=== PATIENT | male | born 1980 | race American Indian/Alaskan Native ===

== ENCOUNTER 2017-02-15 07:13 | Day surgery (SDC) | payer MEDICAID ==
[~2017-02-15 07:13] MED LIST: Dextrose 5%-0.45% NaCl 1,000 ML IV SCH; Midazolam 1 MG/ML 2 ML SDV ONE; Sodium Chloride 0.9% 10 ML Syringe FLUSH PRN; fentaNYL 100 MCG/2 ML SDV ONE
[2017-02-15] MEDS ORDERED: Sodium Chloride 0.9% 1,000 ML IV SCH (07:45)
[2017-02-15] MEDS ORDERED: fentaNYL 100 MCG/2 ML SDV IV ONE ×2 (07:55)
[2017-02-15] MEDS ORDERED: Midazolam 1 MG/ML 2 ML SDV IV ONE ×2 (07:56→07:57)
--- NOTE | 2017-02-15 09:11 | OR ---
DATE: 02/15/2017 PROCEDURE: Esophagogastroduodenoscopy and multiple pinch biopsies. INSTRUMENT USED: GIF-Q180 Olympus video panendoscope. PREMEDICATIONS: No oral topical anesthesia used. Fentanyl 100 mcg intravenous, Versed 2 mg intravenous. The procedure was done under pulse oximetry, BP recording, and hall monitor. INDICATION: The patient with persistent abdominal pain and diarrhea, unexplained, and not responsive to medical measures. Esophagogastroduodenoscopy is performed for detection of any active erosive lesions, Avila esophagus and/or malignancy also under consideration, H. pylori status to be determined, small bowel biopsies to be obtained for any of the celiac disease, endoscopic hemostasis therapy if needed. DESCRIPTION OF PROCEDURE: The scope was passed with ease. Adequate visualization of the esophagus was made from proximal to distal areas. No upper esophageal lesions identified. No distal esophageal stricture. No uphill or downhill esophageal varices. No Justine-Bocanegra tear. No evidence of erosive esophagitis by Ruth criteria. No esophageal polyp or tumor mass identified. Z-line was seen at around 40 cm distal to the oral verge, configuration consistent with grade 1 by ZAP classification. No proximal gastric varices noted. Gastric fundus examination by retroflexion showed no polypoid lesions. There was moderate amount of gastric fluid retention that required aspiration. No gastric ulcer, malignant mass, or vascular ectasia identified. Duodenal bulb showed no ulcer. There was some prominent benign- appearing folds noted in the second part of the duodenum, multiple pinch biopsies, 4 in number were taken from different areas of the second part of the duodenum, and tissues were also obtained from the duodenal bulb at 9 and 12 o'clock positions and sent for any histopathologic evidence of celiac disease. Multiple pinch biopsies were taken from the gastric antrum and proximal body and sent for PyloriTek test for H. pylori and histopathology. No bleeding was noted from any of the visualized areas at the completion of examination. IMPRESSION: Normal study. The patient tolerated the procedure well. [facility] /[id number]
[2017-02-15 10:39] VITALS: BP 118/79
== END 2017-02-15 09:50 | disposition home or self-care (01) ==
LOC: DL.ENDO 07:13
PROVIDERS: ATTEND Internal Medicine Gastroenterology
DX: K29.50 Unspecified chronic gastritis without bleeding (principal); B96.81 Helicobacter pylori [H. pylori] as the cause of diseases classified elsewhere; E11.9 Type 2 diabetes mellitus without complications; K57.30 Diverticulosis of large intestine without perforation or abscess without bleeding; N20.9 Urinary calculus, unspecified; E66.09 Other obesity due to excess calories
CPT/HCPCS: 43239; 87077; J7030; J2250; J3010

== ENCOUNTER 2017-02-19 06:50 | Day surgery (SDC) | payer MEDICAID ==
[~2017-02-19 06:50] MED LIST changes: -Dextrose 5%-0.45% NaCl 1,000 ML IV SCH; -Sodium Chloride 0.9% 10 ML Syringe FLUSH PRN
[2017-02-19] MEDS ORDERED: Dextrose 5%-0.45% NaCl 1,000 ML IV SCH (07:00)
[2017-02-19] MEDS ORDERED: Sodium Chloride 0.9% 10 ML Syringe FLUSH PRN (07:00)
[2017-02-19] MEDS ORDERED: Sodium Chloride 0.9% 250 ML IV SCH (07:40)
[2017-02-19] MEDS ORDERED: fentaNYL 100 MCG/2 ML SDV IV ONE ×4 (08:14→17:12)
[2017-02-19] MEDS ORDERED: Midazolam 1 MG/ML 2 ML SDV IV ONE ×7 (08:15→17:12)
--- NOTE | 2017-02-19 10:18 | OR ---
DATE: 02/19/2017 PROCEDURE: Total colonoscopy, cold snare polypectomy, and multiple pinch biopsies. INSTRUMENT USED: CF-H180AL Olympus video colonoscope. PREMEDICATIONS: Fentanyl 150 mcg intravenous, Versed 4 mg intravenous. Nasal O2 cannula. The procedure was done under pulse oximetry, BP recording, and court recording monitor. INDICATION: The patient with chronic diarrhea and abdominal pain, unexplained, and not responsive to medical measures. Colonoscopic examination is done for detection of any polypoid lesions and removal, biopsies to be obtained for any evidence of microscopic colitis, endoscopic hemostasis therapy if needed. DESCRIPTION OF PROCEDURE: Initial rectal exam was unremarkable. Rigid anoscopy was normal. The colonoscope was passed with ease. In the mid sigmoid colon, less than 1 cm sized pedunculated polyp was noted, photograph was taken, cold snare polypectomy was done, the tissue was retrieved and sent for histopathology. The scope was passed with ease up to the ileocecal area, photographs were taken of the normal-appearing cecum, identified by appendiceal orifice and double-bulged ileocecal folds. The examination was compromised in quite a few areas due to the presence of adherent solid fecal material that could not be aspirated clear. No bleeding was noted from any of the visualized areas at the commencement of the examination. No stricture. No vascular ectasia. No large isolated ulcerations seen. No evidence of diffuse inflammatory bowel disease in the form of friability, contact bleeding, or ulcerations. Probing the proximal sides of folds and flexures, using adequate distention and clearing up the stool material, withdrawal of the scope was made. Multiple pinch biopsies were taken from the normal-appearing mucosa of the midtransverse colon, middescending colon, and rectosigmoid, and sent for any histopathologic evidence of microscopic colitis. No bleeding was noted from any of the visualized areas at the completion of examination. IMPRESSION: Sigmoid colonic polyp. The patient tolerated the procedure well. [facility] /[id number]
[2017-02-19 10:32] VITALS: BP 130/84
== END 2017-02-19 10:40 | disposition home or self-care (01) ==
LOC: DL.ENDO 06:50
PROVIDERS: ATTEND Internal Medicine Gastroenterology
DX: K51.40 Inflammatory polyps of colon without complications (principal); K52.9 Noninfective gastroenteritis and colitis, unspecified; K57.30 Diverticulosis of large intestine without perforation or abscess without bleeding; E11.9 Type 2 diabetes mellitus without complications; E66.09 Other obesity due to excess calories
CPT/HCPCS: 45380; 45385; J2250; J3010; J7050

== ENCOUNTER 2017-04-26 18:55 | Emergency (ER) | payer MEDICAID ==
[2017-04-26 19:10] VITALS: BP 144/93
[2017-04-26] MEDS ORDERED: Ketorolac 30 MG/ML SDV IM ONE (19:21)
[2017-04-26] MEDS ORDERED: Promethazine 25 MG/ML SDV IM ONE (19:21)
--- NOTE | 2017-04-26 19:25 | EDM.PDOC ---
ED HPI GENERAL MEDICAL PROBLEM - General Chief Complaint: Headache Stated Complaint: MIGRAINE [id number] Time Seen by Provider: 04/26/17 19:17 Source of Information: Reports: Patient History Limitations: Reports: No Limitations - History of Present Illness INITIAL COMMENTS - FREE TEXT/NARRATIVE: This 36 yo male patient reports to the ED with a 3 day history of a migraine headache. 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 The patient reports he has tried Tylenol and ibuprofen with no symptom relief. The patient reports he has had migraine headaches in the past , but is not on any medications for migraines. The patient reports he has not taken anything since yesterday and has not been seen for these symptoms. Onset Date: 04/23/17 Duration: Constant Location: Reports: Head Quality: Reports: Ache, Sharp Severity: Severe Improves with: Reports: None Worsens with: Reports: None Associated Symptoms: Reports: No Other Symptoms Treatments [employer]ER: Reports: Acetaminophen, Aspirin, NSAIDS, Other Medication(s) Right Frontal Headache Pain Score (Numeric/FACES): 4 - Related Data Allergies Allergy/AdvReac Type Severity Reaction Status Date / Time azithromycin Allergy Cannot Verified 04/26/17 19:05 Remember carisoprodol [From Soma] Allergy Rash Verified 04/26/17 19:05 coconut oil Allergy Rash Verified 04/26/17 19:05 Penicillins Allergy Hives Verified 04/26/17 19:05 pineapple [Pineapple] Allergy Swelling Verified 04/26/17 19:05 venom-honey bee Allergy Anaphylactic Verified 04/26/17 19:05 [bee venom (honey bee)] Shock Home Meds: Home Meds Excedrin 1 tab PO ASDIRECTED 07/10/14 [History] Canagliflozin [Invokana] 1 tab PO DAILY 02/14/17 [History] Insulin Regular, Human [Humulin R U-500 Kwikpen] 100 unit SQ BID 02/15/17 [ History] Multivitamin [Multivitamins] 1 cap PO DAILY 04/26/17 [History] [place]-3/DHA/Epa/Fish Oil [[place] 3 500 Softgel] 1 tab PO DAILY 04/26/17 [History] Past Medical History HEENT History: Reports: None Respiratory History: Reports: None Gastrointestinal History: Reports: Diverticulosis, GERD Genitourinary History: Reports: Renal Calculus, Other (See Below) Other Genitourinary History: 2 left kidneys Musculoskeletal History: Reports: Other (See Below) Other Musculoskeletal History: reconstructive surgery for concave chest when 5 years old Endocrine/Metabolic History: Reports: Diabetes, Type II Immunologic History: Reports: None - Infectious Disease History Infectious Disease History: Reports: Chicken Pox - Past Surgical History Respiratory Surgical History: Reports: Other (See Below) Other Respiratory Surgeries/Procedures: chest deformity surg age 4 Male Surgical History: Reports: Circumcision Social & Family History - Family History Family Medical History: Noncontributory - Tobacco Use Smoking Status *Q: Former Smoker Years of Tobacco use: 15 Used Tobacco, but Quit: Yes Month Tobacco Last Used: 1 yr ago Second Hand Smoke Exposure: No - Caffeine Use Caffeine Use: Reports: Coffee - Alcohol Use Days Per Week of Alcohol Use: 0 - Recreational Drug Use Recreational Drug Use: No - Living Situation & Occupation Living situation: Reports: Single, with Family Occupation: Retired ED ROS GENERAL - Review of Systems Review Of Systems: ROS reveals no pertinent complaints other than HPI. - Physical Exam Exam: See Below Exam Limited By: No Limitations General Appearance: Alert, Mild Distress, Obese Eye Exam: Bilateral Eye: EOMI, Normal Inspection, PERRL Ears: Normal External Exam, Normal Canal, Hearing Grossly Normal, Normal TMs Nose: Normal Inspection, Normal Mucosa, No Blood Throat/Mouth: Normal Inspection, Normal Lips, Normal Teeth, Normal Gums, Normal Oropharynx, Normal Voice, No Airway Compromise Head Exam: Atraumatic, Normocephalic Neck: Normal Inspection, Supple, Non-Tender, Full Range of Motion Respiratory/Chest: No Respiratory Distress, Lungs Clear, Normal Breath Sounds, No Accessory Muscle Use, Chest Non-Tender Cardiovascular: Normal Peripheral Pulses, Regular Rate, Rhythm, No Edema, No Gallop, No JVD, No Murmur, No Rub (Male) Exam: Deferred Rectal (Males) Exam: Deferred Neuro Exam (Abbreviated): Alert, Oriented, CN II-XII Intact, Normal Cognition, Normal Gait, Normal Reflexes, No Motor/Sensory Deficits Back Exam: Normal Inspection, Full Range of Motion, NT Extremities: Normal Inspection, Normal Range of Motion, Non-Tender, No Pedal Edema, Normal Capillary Refill Psychiatric: Normal Affect, Normal Mood Skin Exam: Warm, Dry, Intact, Normal Color, No Rash Course - Vital Signs Last Recorded V/S: Last Vital Signs Temp 36.7 C 04/26/17 19:09 Pulse 103 H 04/26/17 19:09 Resp 20 04/26/17 19:09 BP 144/93 H 04/26/17 19:09 Pulse Ox 99 04/26/17 19:09 - Orders/Labs/Meds Meds: Medications Discontinued Medications Generic Name Dose Route Start Last Admin Trade Name Rene PRN Reason Stop Dose Admin Ketorolac Tromethamine 60 mg 04/26/17 19:21 04/26/17 19:30 Toradol IM 04/26/17 19:22 60 mg ONETIME ONE Administration Promethazine HCl 25 mg 04/26/17 19:21 04/26/17 19:28 Phenergan IM 04/26/17 19:22 25 mg ONETIME ONE Administration Departure - Departure Time of Disposition: 19:43 Disposition: Home, Self-Care 01 Condition: Fair Clinical Impression: Migraine - Discharge Information Instructions: Recurrent Migraine Headache, [id number] Forms: ED Department Discharge Care Plan Goals: The patient was advised of the examination results during the visit. The patient was given injection of Toradol and Phenergan while in the ED. The patient was encouraged to continue to remain hydrated. If the patient has any additional symptoms or further concerns, the patient should follow-up with his primary care facility or return to the emergency department.
== END 2017-04-26 19:52 | disposition home or self-care (01) ==
LOC: DL.ED 18:55
DX: G43.909 Migraine, unspecified, not intractable, without status migrainosus (principal); K21.9 Gastro-esophageal reflux disease without esophagitis; E11.9 Type 2 diabetes mellitus without complications; Z79.4 Long term (current) use of insulin; Z98.890 Other specified postprocedural states; Z87.891 Personal history of nicotine dependence; Z79.899 Other long term (current) drug therapy; Z88.0 Allergy status to penicillin; Z88.1 Allergy status to other antibiotic agents; Z91.018 Allergy to other foods; Z91.030 Bee allergy status; Z91.09 Other allergy status, other than to drugs and biological substances; Z88.8 Allergy status to other drugs, medicaments and biological substances
CPT/HCPCS: 96372; 99283; J1885; J2550

== ENCOUNTER 2017-09-29 20:03 | Emergency (ER) | payer MEDICAID ==
[2017-09-29 20:09] VITALS: BP 158/94
[2017-09-29] MEDS ORDERED: Ibuprofen 600 MG Tab PO ONE (20:28)
--- NOTE | 2017-09-29 20:28 | EDM.PDOC ---
ED HPI GENERAL MEDICAL PROBLEM - General Chief Complaint: General Stated Complaint: JAW PAIN [id number] Time Seen by Provider: 09/29/17 20:10 Source of Information: Reports: Patient History Limitations: Reports: No Limitations - History of Present Illness INITIAL COMMENTS - FREE TEXT/NARRATIVE: c/o left upper jaw pain from bad tooth. Last dentist 2 years ago. Throbbing pain past 2 hours, no relief with tylenol . Chills no fever. Treatments CREATIVE PERFUMER: Reports: Acetaminophen Left Face Pain Score (Numeric/FACES): 7 - Related Data Allergies Allergy/AdvReac Type Severity Reaction Status Date / Time azithromycin Allergy Cannot Verified 09/29/17 20:11 Remember carisoprodol [From Soma] Allergy Rash Verified 09/29/17 20:11 coconut oil Allergy Rash Verified 09/29/17 20:11 Penicillins Allergy Hives Verified 09/29/17 20:11 pineapple [Pineapple] Allergy Swelling Verified 09/29/17 20:11 venom-honey bee Allergy Anaphylactic Verified 09/29/17 20:11 [bee venom (honey bee)] Shock Home Meds: Home Meds Excedrin 1 tab PO ASDIRECTED 07/10/14 [History] Canagliflozin [Invokana] 1 tab PO DAILY 02/14/17 [History] Insulin Regular, Human [Humulin R U-500 Kwikpen] 100 unit SQ BID 02/15/17 [ History] Multivitamin [Multivitamins] 1 cap PO DAILY 04/26/17 [History] [place]-3/DHA/Epa/Fish Oil [[place] 3 500 Softgel] 1 tab PO DAILY 04/26/17 [History] Past Medical History HEENT History: Reports: None Cardiovascular History: Reports: High Cholesterol Respiratory History: Reports: None Gastrointestinal History: Reports: GERD, Helicobacter Pylori Genitourinary History: Reports: Renal Calculus, Other (See Below) Other Genitourinary History: 2 left kidneys Musculoskeletal History: Reports: Other (See Below) Other Musculoskeletal History: reconstructive surgery for concave chest when 5 years old Endocrine/Metabolic History: Reports: Diabetes, Type II Immunologic History: Reports: None - Infectious Disease History Infectious Disease History: Reports: Chicken Pox - Past Surgical History Other HEENT Surgeries/Procedures: [place] Palsy-left Respiratory Surgical History: Reports: Other (See Below) Other Respiratory Surgeries/Procedures: chest deformity surg age 4 Male Surgical History: Reports: Circumcision Social & Family History - Family History Family Medical History: Noncontributory - Tobacco Use Smoking Status *Q: Never Smoker Years of Tobacco use: 15 Used Tobacco, but Quit: Yes Month Tobacco Last Used: 1 yr ago Second Hand Smoke Exposure: No - Caffeine Use Caffeine Use: Reports: Coffee - Alcohol Use Days Per Week of Alcohol Use: 0 - Recreational Drug Use Recreational Drug Use: No - Living Situation & Occupation Living situation: Reports: Single, with Family Occupation: Retired ED ROS GENERAL - Review of Systems Review Of Systems: ROS reveals no pertinent complaints other than HPI. ED EXAM, GENERAL - Physical Exam Exam: See Below Exam Limited By: No Limitations General Appearance: Alert, Mild Distress Eye Exam: Bilateral Eye: EOMI Ears: Normal External Exam, Normal TMs (right), Other Ear Exam: Left Ear: Erythema Nose: Normal Inspection Throat/Mouth: Other (poor dentation, multiple area of decay, large area left upper 2nd, 3rd molar, mild swelling to gum tissue.) Neck: Normal Inspection. No: Lymphadenopathy (L), Lymphadenopathy (R) Respiratory/Chest: No Respiratory Distress, Lungs Clear, Normal Breath Sounds Cardiovascular: Normal Peripheral Pulses, Regular Rate, Rhythm Neurological: Alert, Oriented Psychiatric: Normal Affect Skin Exam: Warm, Dry, Intact, Normal Color Course - Vital Signs Last Recorded V/S: Last Vital Signs Temp 97.7 F 09/29/17 20:07 Pulse 106 H 09/29/17 20:07 Resp 22 H 09/29/17 20:07 BP 158/94 H 09/29/17 20:07 Pulse Ox 97 09/29/17 20:07 Departure - Departure Time of Disposition: 20:33 Disposition: Home, Self-Care 01 Condition: Good Clinical Impression: Pain due to dental caries - Discharge Information Instructions: Dental Abscess, [id number] Additional Instructions: follow up with dentist this week alternate tylenol and ibuprofen every 4 hours as needed for discomfort clindamycin 300mg 4 times daily for one week
[2017-09-29] MEDS ORDERED: Clindamycin HCl 150 MG Cap PO ONE (20:29)
== END 2017-09-29 20:43 | disposition home or self-care (01) ==
LOC: DL.ED 20:03
DX: K02.9 Dental caries, unspecified (principal); E11.9 Type 2 diabetes mellitus without complications; E78.00 Pure hypercholesterolemia, unspecified; Z88.1 Allergy status to other antibiotic agents; Z88.0 Allergy status to penicillin; Z91.030 Bee allergy status; Z79.899 Other long term (current) drug therapy; Z79.4 Long term (current) use of insulin
CPT/HCPCS: 99282; A9270

== ENCOUNTER 2017-11-21 07:18 | Day surgery (SDC) | payer MEDICAID ==
[~2017-11-21 07:18] MED LIST changes: +Bupivacaine 0.5% 10 ML SDV ONE; +Lidocaine 1% 30 ML SDV ONE; -Midazolam 1 MG/ML 2 ML SDV ONE; +Sodium Chloride 0.9% 10 ML Syringe FLUSH PRN; -fentaNYL 100 MCG/2 ML SDV ONE
[2017-11-21] MEDS ORDERED: Propofol 200 MG/20 ML SDV IV ONE (07:19)
[2017-11-21] MEDS ORDERED: fentaNYL 100 MCG/2 ML SDV IV ONE (07:19)
[2017-11-21] MEDS ORDERED: Midazolam 1 MG/ML 2 ML SDV IV ONE (07:19)
[2017-11-21] MEDS ORDERED: Ketorolac 30 MG/ML SDV IVPUSH ONE (07:19)
[2017-11-21] MEDS ORDERED: Ondansetron 4 MG/2 ML SDV IV ONE (07:19)
[2017-11-21] MEDS: Lactated Ringers 1,000 ML IV SCH (07:50)
[2017-11-21] MEDS ORDERED: Clindamycin Phosphate 600 MG/4 ML SDV ONE (07:52)
[2017-11-21] MEDS ORDERED: Sodium Chloride 0.9% 100 ML ONE (07:56)
[2017-11-21] MEDS: Clindamycin Phosphate 600 MG in Sodium Chloride 0.9% 100 ML IV ONE (08:16)
[2017-11-21] MEDS ORDERED: fentaNYL 100 MCG/2 ML SDV ONE (08:21)
[2017-11-21] MEDS ORDERED: Midazolam 1 MG/ML 2 ML SDV ONE (08:21)
[2017-11-21] MEDS ORDERED: Propofol 200 MG/20 ML SDV ONE (08:23)
--- NOTE | 2017-11-21 10:04 | PCM.OPNOTE ---
- General Post-Op/Procedure Note Date of Surgery/Procedure: 11/21/17 Operative Procedure(s): right foot open plantar fascia release with bone spur excision Pre Op Diagnosis: right foot plantar fascitiis with bone spur Post-Op Diagnosis: TORI Anesthesia Technique: Local, MAC Primary Surgeon: Christal Monsivais Anesthesia Provider: John Hull EBL in mLs: 10 Complications: none Condition: Good Free Text/Narrative:: Pt tolerated procedure well and was transported to recovery with vascular status intact to right foot. TT 24 mins. Well padded L&U splint applied with foot in 90 degrees.
[2017-11-21] MEDS: Acetaminophen/oxyCODONE 325-5 MG Tab PO ONE (11:49)
[2017-11-21 12:15] VITALS: BP 143/78
--- NOTE | 2017-11-22 08:40 | OR ---
DATE: 11/21/2017 PREOPERATIVE DIAGNOSIS: Right foot plantar fasciitis with heel spur. POSTOPERATIVE DIAGNOSIS: Right foot plantar fasciitis with heel spur. PROCEDURE PERFORMED: Right foot open plantar fasciectomy with heel spur excision. ANESTHESIA: Local MAC with preoperative local block of 10 mL 1:1 mixture of 1% lidocaine plain and 0.5% Marcaine plain. TOURNIQUET TIME: 24 minutes. Pneumatic ankle tourniquet. ESTIMATED BLOOD LOSS: Minimal. SPECIMEN: None. COMPLICATIONS: None. INDICATIONS: Shahid is a 36-year-old male with bilateral heel pain. He states he has been dealing with this heel pain for over a year now. He has tried different shoes, orthotics, stretching, and icing exercises. He states he did see another nail tech in [place], who has given him heel injections a few different rounds, the last round only helped for a couple days and then the pain returned. He has also done physical therapy exercises with no relief. He was placed in a Cam boot as well due to an Achilles tendon injury and he was in that boot for 6 weeks, this also did not help with his plantar fasciitis. He states his Achilles tendon seems to be better and there is no pain today, it seems to have completely resolved now. He has failed conservative options for the plantar fasciitis and would like to go ahead with surgical correction today with a heel spur excision. X-rays reveal plantar calcaneal spur on the right foot, no signs of fracture. The patient voiced good understanding of proposed procedure and possible complications and elects to have surgery at this time. DESCRIPTION OF PROCEDURE: The patient was taken the operating room lying in supine position. After adequate anesthesia induction as described above, the right foot was prepped and draped in the usual sterile fashion. A pneumatic ankle tourniquet was inflated to 225 mmHg. Attention was then directed to the right foot instep just distal to the calcaneal fat pad where an approximately 4 cm linear incision was made on the plantar aspect of the foot to gain access to the central band of the plantar fascia. Sharp and blunt dissection were performed down to the level of the plantar fascia band at the medial and central aspect. An approximately 1 cm2 section of the plantar fascia band was resected from the foot in this area. I was able to palpate the bone spur at this time and a rongeur was used to remove the plantar calcaneal bone spur. A bone rasp was used to file the bone spur down to smooth edge. I was able to palpate the entire area and no remaining spur was felt to this area. Inspection of the site also revealed no further tightness of the plantar fascia in this area. The site was then irrigated with copious amounts of sterile saline. Deep closure was completed with 0 Vicryl and skin closure was completed with 4-0 nylon. The area was dressed with Xeroform to the incision site, fluffs, Webril, and a well- padded L and U splint with the foot in neutral position. He will remain nonweightbearing until the sutures come out. The patient tolerated procedure and anesthesia well and left the operating room for recovery with vital signs stable and in good condition with vascular status intact to the right foot as noted by immediate hyperemia upon deflation of the tourniquet. Total tourniquet time was 24 minutes. The patient was then discharged home when he met hospital discharge requirements. [facility] /[id number]
== END 2017-11-21 12:00 | disposition home or self-care (01) ==
LOC: DL.SDS 07:18
PROVIDERS: ATTEND Podiatrist
DX: M72.2 Plantar fascial fibromatosis (principal); M77.31 Calcaneal spur, right foot; F32.9 Major depressive disorder, single episode, unspecified; K21.9 Gastro-esophageal reflux disease without esophagitis; E78.5 Hyperlipidemia, unspecified; E66.9 Obesity, unspecified; E11.9 Type 2 diabetes mellitus without complications; Z98.890 Other specified postprocedural states; Z87.891 Personal history of nicotine dependence
CPT/HCPCS: 28060; 82962; A9270; J1885; J2250; J2405; J2704; J3010; J7050; J7120; S0077

== ENCOUNTER 2018-04-09 06:57 | Emergency (ER) | payer MEDICAID ==
[2018-04-09 07:20] VITALS: BP 155/86
[2018-04-09 07:51] LABS: ANION GAP 13.3; CHLORIDE,CL 99 mmol/L (101-111); SODIUM,NA 132 mmol/L (135-145)
[2018-04-09] MEDS ORDERED: Ondansetron 4 MG/2 ML SDV IV ONE (07:54)
--- NOTE | 2018-04-09 08:01 | EDM.PDOC ---
ED HPI GENERAL MEDICAL PROBLEM - General Chief Complaint: Abdominal Pain Stated Complaint: SEVERE, RIGHT SIDE PAIN Time Seen by Provider: 04/09/18 07:45 Source of Information: Reports: Patient History Limitations: Reports: No Limitations - History of Present Illness INITIAL COMMENTS - FREE TEXT/NARRATIVE: This 37 yo male patient reports to the ED with RUQ abdominal pain. The patient reports his pain started 3 days ago, got better yesterday and got worse again today. The patient reports that he was diagnosed with "sludge in gallbladder" 3 years ago, but the "S surgeon decided not to do surgery." The patient reports that he became nauseated today in addition to the abdominal pain. Onset Date: 04/07/18 Duration: Constant Location: Reports: Abdomen (RUQ) Quality: Reports: Ache, Sharp Severity: Moderate Improves with: Reports: None Worsens with: Reports: None Context: Reports: Other Associated Symptoms: Reports: Nausea/Vomiting Right Upper Abdomen Pain Score (Numeric/FACES): 3 - Related Data Allergies Allergy/AdvReac Type Severity Reaction Status Date / Time azithromycin Allergy Cannot Verified 11/21/17 07:59 Remember carisoprodol [From Soma] Allergy Rash Verified 11/21/17 07:59 coconut oil Allergy Rash Verified 11/21/17 07:59 Penicillins Allergy Hives Verified 11/21/17 07:59 pineapple [Pineapple] Allergy Swelling Verified 11/21/17 07:59 venom-honey bee Allergy Anaphylactic Verified 11/21/17 07:59 [bee venom (honey bee)] Shock Home Meds: Home Meds Excedrin 1 tab PO ASDIRECTED 07/10/14 [History] Insulin Regular, Human [Humulin R U-500 Kwikpen] 90 unit SQ QPM 02/15/17 [ History] Monument-3/DHA/Epa/Fish Oil [[place]ument 3 500 Softgel] 1 tab PO DAILY 04/26/17 [History] Fenofibrate Nanocrystallized [Tricor] 48 mg PO 04/09/18 [History] Insulin Regular, Human [Humulin R] 100 unit IJ QAM 04/09/18 [History] Past Medical History HEENT History: Reports: None Cardiovascular History: Reports: High Cholesterol Respiratory History: Reports: None Gastrointestinal History: Reports: GERD, Helicobacter Pylori Genitourinary History: Reports: Renal Calculus, Other (See Below) Other Genitourinary History: 2 left kidneys Musculoskeletal History: Reports: Other (See Below) Other Musculoskeletal History: reconstructive surgery for concave chest when 5 years old Neurological History: Reports: Migraines Psychiatric History: Reports: None Endocrine/Metabolic History: Reports: Diabetes, Type II Hematologic History: Reports: None Immunologic History: Reports: None Oncologic (Cancer) History: Reports: None Dermatologic History: Reports: None - Infectious Disease History Infectious Disease History: Reports: Chicken Pox, Measles - Past Surgical History Head Surgeries/Procedures: Reports: None Other HEENT Surgeries/Procedures: [place] Palsy-left Respiratory Surgical History: Reports: Other (See Below) Other Respiratory Surgeries/Procedures: chest deformity surg age 4 Male Surgical History: Reports: Circumcision Social & Family History - Family History Family Medical History: Noncontributory - Tobacco Use Smoking Status *Q: Former Smoker Used Tobacco, but Quit: Yes Month/Year Tobacco Last Used: 03/2015 - Caffeine Use Caffeine Use: Reports: Coffee - Recreational Drug Use Recreational Drug Use: No - Living Situation & Occupation Living situation: Reports: Single, with Family Occupation: Retired ED ROS GENERAL - Review of Systems Review Of Systems: ROS reveals no pertinent complaints other than HPI. ED EXAM, GI/ABD - Physical Exam Exam: See Below Exam Limited By: No Limitations General Appearance: Alert, WD/WN, Moderate Distress Eyes: Bilateral: Normal Appearance, EOMI Ears: Normal External Exam, Normal Canal, Hearing Grossly Normal, Normal TMs Nose: Normal Inspection, Normal Mucosa, No Blood Throat/Mouth: Normal Inspection, Normal Lips, Normal Teeth, Normal Gums, Normal Oropharynx, Normal Voice, No Airway Compromise Head: Atraumatic, Normocephalic Neck: Normal Inspection, Supple, Non-Tender, Full Range of Motion Respiratory/Chest: No Respiratory Distress, Lungs Clear, Normal Breath Sounds, No Accessory Muscle Use, Chest Non-Tender Cardiovascular: Normal Peripheral Pulses, Regular Rate, Rhythm, No Edema, No Gallop, No JVD, No Murmur, No Rub GI/Abdominal Exam: Guarding, Tender (RUQ) (Male) Exam: Deferred Rectal (Males) Exam: Deferred Back Exam: Normal Inspection, Full Range of Motion, NT Extremities: Normal Inspection, Normal Range of Motion, Non-Tender, Normal Capillary Refill, No Pedal Edema Neurological: Alert, Oriented, CN II-XII Intact, Normal Cognition, Normal Gait, Normal Reflexes, No Motor/Sensory Deficits Psychiatric: Normal Affect, Normal Mood Skin Exam: Warm, Dry, Intact, Normal Color, No Rash Lymphatic: No Adenopathy Course - Vital Signs Last Recorded V/S: Last Vital Signs Temp 36.6 C 04/09/18 07:08 Pulse 99 04/09/18 07:08 Resp 18 04/09/18 07:08 BP 155/86 H 04/09/18 07:08 Pulse Ox 98 04/09/18 07:08 - Orders/Labs/Meds Orders: Active Orders 24 hr Category Date Time Status DRUG SCREEN URINE BIORAD [URCHEM] Stat Lab 04/09/18 07:22 Ordered Labs: Laboratory Tests 04/09/18 04/09/18 04/09/18 Range/Units 07:04 07:04 07:04 WBC 9.2 (5.0-10.0) 10^3/uL RBC 5.29 (4.6-6.2) 10^6/uL Hgb 16.0 (14.0-18.0) g/dL Hct 48.6 (40.0-54.0) % MCV 91.9 (80-100) fL MCH 30.2 (27.0-34.0) pg MCHC 32.9 L (33.0-35.0) g/dL Plt Count 239 (150-450) 10^3/uL Neut % (Auto) 59.0 (42.2-75.2) % Lymph % (Auto) 30.3 (20.5-50.1) % [place] % (Auto) 7.9 (2-8) % Eos % (Auto) 2.3 (1.0-3.0) % Baso % (Auto) 0.5 (0.0-1.0) % Sodium 132 L (135-145) mmol/L Potassium 4.3 (3.6-5.0) mmol/L Chloride 99 L (101-111) mmol/L Carbon Dioxide 24.0 (21.0-31.0) mmol/L Anion Gap 13.3 BUN 21 H (7-18) mg/dL Creatinine 1.0 (0.6-1.3) mg/dL Est Cr Clr Drug Dosing 104.43 mL/min Estimated GFR (MDRD) > 60 BUN/Creatinine Ratio 21.00 Glucose 461 H* (74-105) mg/dL Calcium 8.8 (8.4-10.2) mg/dl Total Bilirubin 0.5 (0.2-1.0) mg/dL AST 31 (10-42) IU/L ALT 36 (10-60) IU/L Alkaline Phosphatase 143 H (42-121) IU/L Total Protein 7.3 (6.7-8.2) g/dl Albumin 3.7 (3.2-5.5) g/dl Globulin 3.6 Albumin/Globulin Ratio 1.03 Amylase 30 (28-100) U/L Lipase 28 (22-51) U/L Urine Color (YELLOW) Urine Appearance (CLEAR) Urine pH (5.0-9.0) Ur Specific [place] (1.005-1.030) Urine Protein (NEGATIVE) Urine Glucose (UA) (NEGATIVE) Urine Ketones (NEGATIVE) Urine Occult Blood (NEGATIVE) Urine Nitrite (NEGATIVE) Urine Bilirubin (NEGATIVE) Urine Urobilinogen (0.2-1.0) mg/dL Ur Leukocyte Esterase (NEGATIVE) Urine RBC /HPF Urine WBC (0-5/HPF) /HPF Ur Epithelial Cells /HPF Urine Bacteria (0-FEW/HPF) /HPF Urine Opiates Screen (NEGATIVE) Ur Oxycodone Screen (NEGATIVE) Urine Methadone Screen (NEGATIVE) Ur Barbiturates Screen (NEGATIVE) U Tricyclic Antidepress (NEGATIVE) Ur Phencyclidine Scrn (NEGATIVE) Ur Amphetamine Screen (NEGATIVE) U Methamphetamines Scrn (NEGATIVE) Urine MDMA Screen (NEGATIVE) U Benzodiazepines Scrn (NEGATIVE) Urine Cocaine Screen (NEGATIVE) U Marijuana (THC) Screen (NEGATIVE) 04/09/18 04/09/18 Range/Units 07:10 07:10 WBC (5.0-10.0) 10^3/uL RBC (4.6-6.2) 10^6/uL Hgb (14.0-18.0) g/dL Hct (40.0-54.0) % MCV (80-100) fL MCH (27.0-34.0) pg MCHC (33.0-35.0) g/dL Plt Count (150-450) 10^3/uL Neut % (Auto) (42.2-75.2) % Lymph % (Auto) (20.5-50.1) % [place] % (Auto) (2-8) % Eos % (Auto) (1.0-3.0) % Baso % (Auto) (0.0-1.0) % Sodium (135-145) mmol/L Potassium (3.6-5.0) mmol/L Chloride (101-111) mmol/L Carbon Dioxide (21.0-31.0) mmol/L Anion Gap BUN (7-18) mg/dL Creatinine (0.6-1.3) mg/dL Est Cr Clr Drug Dosing mL/min Estimated GFR (MDRD) BUN/Creatinine Ratio Glucose (74-105) mg/dL Calcium (8.4-10.2) mg/dl Total Bilirubin (0.2-1.0) mg/dL AST (10-42) IU/L ALT (10-60) IU/L Alkaline Phosphatase (42-121) IU/L Total Protein (6.7-8.2) g/dl Albumin (3.2-5.5) g/dl Globulin Albumin/Globulin Ratio Amylase (28-100) U/L Lipase (22-51) U/L Urine Color Yellow (YELLOW) Urine Appearance Clear (CLEAR) Urine pH 6.0 (5.0-9.0) Ur Specific [place] 1.010 (1.005-1.030) Urine Protein 100 H (NEGATIVE) Urine Glucose (UA) 500 H (NEGATIVE) Urine Ketones 15 H (NEGATIVE) Urine Occult Blood Trace-intact H (NEGATIVE) Urine Nitrite Negative (NEGATIVE) Urine Bilirubin Negative (NEGATIVE) Urine Urobilinogen 0.2 (0.2-1.0) mg/dL Ur Leukocyte Esterase Negative (NEGATIVE) Urine RBC 0-5 /HPF Urine WBC 0-5 (0-5/HPF) /HPF Ur Epithelial Cells Rare /HPF Urine Bacteria Rare (0-FEW/HPF) /HPF Urine Opiates Screen Negative (NEGATIVE) Ur Oxycodone Screen Negative (NEGATIVE) Urine Methadone Screen Negative (NEGATIVE) Ur Barbiturates Screen Negative (NEGATIVE) U Tricyclic Antidepress Negative (NEGATIVE) Ur Phencyclidine Scrn Negative (NEGATIVE) Ur Amphetamine Screen Negative (NEGATIVE) U Methamphetamines Scrn Negative (NEGATIVE) Urine MDMA Screen Negative (NEGATIVE) U Benzodiazepines Scrn Negative (NEGATIVE) Urine Cocaine Screen Negative (NEGATIVE) U Marijuana (THC) Screen Negative (NEGATIVE) Meds: Medications Discontinued Medications Generic Name Dose Route Start Last Admin Trade Name Rene PRN Reason Stop Dose Admin Ondansetron HCl 4 mg 04/09/18 07:54 04/09/18 07:58 Zofran IV 04/09/18 07:55 4 mg ONETIME ONE Administration Departure - Departure Time of Disposition: 08:58 Disposition: Home, Self-Care 01 Condition: Fair Clinical Impression: Gastroenteritis - Discharge Information *PRESCRIPTION DRUG MONITORING PROGRAM REVIEWED*: Not Applicable *COPY OF PRESCRIPTION DRUG MONITORING REPORT IN PATIENT RISHI: Not Applicable Instructions: Viral Gastroenteritis, Adult, Nausea and Vomiting, Adult, Easy-to -Read Forms: ED Department Discharge Care Plan Goals: The patient was advised of the examination, lab and ultrasound. The patient was encouraged to stick to a BRAT diet (bananas, rice, applesauce and toast) with small frequent sips of fluid over the next 48 hours. The patient was given an IV dose of Zofran while in the ED. The patient was discharged with a script for Zofran ODT (4 mg) #20 to take 1 by mouth every 6 mg as needed for nausea. If the patient has any additional symptoms or concerns, the patient should follow- up with his primary care facility or return to the emergency department. - My Orders Last 24 Hours: My Active Orders 04/09/18 07:22 DRUG SCREEN URINE BIORAD [URCHEM] Stat - Assessment/Plan Last 24 Hours: My Active Orders 04/09/18 07:22 DRUG SCREEN URINE BIORAD [URCHEM] Stat
--- NOTE | 2018-04-09 08:48 | US ---
Clinical history: 37-year-old male [facility] emergency department with right upper quadran t abdominal pain. Interpretation: 1. Large homogeneously echodense fatty appearing liver without discrete cystic or solid parenchymal m ass lesion or abnormal dilatation of the intra/extrahepatic biliary ducts (common hepatic duct 2.5 mm and the common bile duct 2.8 mm diameter). Uniformly normal gallbladder wall thickness and no sign of pericystic fluid, intraluminal mucosal wal l polyp, or mobile dependent intraluminal echogenic "shadowing" gallstones. Pancreas normal size, anatomic configuration and homogeneous density. No pathologic pancreatic calcifications, pancreatic mass or major duct dilatation. No ascites. CONCLUSION: Fatty liver. Negative gallbladder and pancreas.
== END 2018-04-09 09:15 | disposition home or self-care (01) ==
LOC: DL.ED 06:57
DX: K52.9 Noninfective gastroenteritis and colitis, unspecified (principal); E11.9 Type 2 diabetes mellitus without complications; Z79.4 Long term (current) use of insulin; Z88.1 Allergy status to other antibiotic agents; Z88.0 Allergy status to penicillin; Z91.030 Bee allergy status; Z87.891 Personal history of nicotine dependence
CPT/HCPCS: 36415; 76705; 80053; 80305; 81001; 82150; 83690; 85025; 96374; 99284; J2405

== ENCOUNTER 2018-05-06 08:15 | Day surgery (SDC) | payer MEDICAID ==
[2018-05-06] MEDS ORDERED: Rocuronium 50 MG/5 ML Vial IV ONE (08:16)
[2018-05-06] MEDS ORDERED: fentaNYL 250 MCG/5 ML SDV IV ONE (08:16)
[2018-05-06] MEDS ORDERED: Glycopyrrolate 0.2 MG/ML 2 ML SDV IV ONE (08:16)
[2018-05-06] MEDS ORDERED: Lidocaine 2% 20 ML MDV INJECT ONE (08:16)
[2018-05-06] MEDS ORDERED: Ketorolac 30 MG/ML SDV IVPUSH ONE (08:16)
[2018-05-06] MEDS ORDERED: Neostigmine Methylsulfate 10 MG/10 ML MDV IV ONE (08:16)
[2018-05-06] MEDS ORDERED: Ondansetron 4 MG/2 ML SDV IV ONE (08:16)
[2018-05-06] MEDS ORDERED: Midazolam 1 MG/ML 2 ML SDV IV ONE (08:16)
[2018-05-06] MEDS ORDERED: Metoclopramide 10 MG/2 ML SDV IV ONE (08:16)
[2018-05-06] MEDS ORDERED: Propofol 200 MG/20 ML SDV IV ONE (08:16)
[2018-05-06] MEDS ORDERED: Lactated Ringers 1,000 ML IV SCH (09:00)
[2018-05-06] MEDS ORDERED: Morphine 2 MG/ML Syringe IVPUSH PRN (12:26)
[2018-05-06] MEDS: Acetaminophen/oxyCODONE 325-5 MG Tab PO PRN ×2 (14:26→21:00)
[2018-05-06] MEDS: Ondansetron 4 MG/2 ML SDV IV SCH ×2 (14:26→17:47)
--- NOTE | 2018-05-06 20:12 | OR ---
DATE: 05/06/2018 PREOPERATIVE DIAGNOSIS: Chronic cholecystitis with low HIDA ejection fraction. POSTOPERATIVE DIAGNOSIS: Chronic cholecystitis with low HIDA ejection fraction. PROCEDURE: Laparoscopic cholecystectomy. ANESTHESIA: General. ESTIMATED BLOOD LOSS: Minimum. SPECIMEN: Gallbladder. OPERATION FINDINGS: Large fatty infiltrated liver. Normal-appearing gallbladder with pericholecystic adhesions. He did have some small flecks of sludge within the gallbladder when it was opened. INDICATION FOR PROCEDURE: This 37-year-old male has symptomatic right upper quadrant abdominal pain and a HIDA scan that shows an ejection fraction of 7.8%. He had a previous ultrasound 2 years ago that showed sludge within the gallbladder. It was recommended to remove it then, but he has put it off until now. He has become more symptomatic recently. PROCEDURE IN DETAIL: After adequate preparation, trocars were placed under direct vision and the abdomen was insufflated. Examination the abdomen did not show any abnormalities except for a hepatomegaly with a typical nutmeg appearance of fatty infiltration. The gallbladder had a number of omental adhesions around the middle to Eunice's pouch of the gallbladder and these needed to be taken down by sharp dissection to expose the gallbladder. The cystic triangle structures were identified, triply clipped, and divided and the gallbladder was taken off the liver bed without any difficulty using cautery and blunt dissection. There was only minimal bleeding at all through the procedure. The gallbladder was brought out through the epigastric trocar site and the abdomen was desufflated and the skin was then closed with Monocryl. The gallbladder was opened on the back table and did contain several small flecks of sludge-appearing material. No large stones were present and the bile appeared to be normal. [facility] /[id number]
[2018-05-06] MEDS: Sodium Chloride 0.9% 10 ML Syringe FLUSH PRN (22:13)
[2018-05-07] MEDS: Sodium Chloride 0.9% 10 ML Syringe FLUSH PRN ×4 (00:01→06:16)
[2018-05-07] MEDS: Ondansetron 4 MG/2 ML SDV IV SCH ×2 (00:02→06:11)
[2018-05-07] MEDS: Acetaminophen/oxyCODONE 325-5 MG Tab PO PRN (06:08)
--- NOTE | 2018-05-07 07:45 | PCM.SN ---
- Free Text/Narrative Note: Patient stable today. No pain. PO adequate. Incisions clean and dry. Can discharge and will followup in clinic as needed. Resume prior home meds. No new prescriptions. Dr. Blackwell
[2018-05-07 09:23] VITALS: BP 139/71
== END 2018-05-07 09:20 | disposition home or self-care (01) ==
LOC: DL.SDS 08:15 → EDSTATUS 10:00 → DL.SDS 05-07 09:20
PROVIDERS: ATTEND Surgery
DX: K81.1 Chronic cholecystitis (principal); K82.8 Other specified diseases of gallbladder; K76.0 Fatty (change of) liver, not elsewhere classified; E11.9 Type 2 diabetes mellitus without complications; E66.01 Morbid (severe) obesity due to excess calories; G47.30 Sleep apnea, unspecified; Z79.4 Long term (current) use of insulin; Z88.0 Allergy status to penicillin; Z88.1 Allergy status to other antibiotic agents; Z88.8 Allergy status to other drugs, medicaments and biological substances; Z91.018 Allergy to other foods; Z91.030 Bee allergy status
CPT/HCPCS: 00790; 47562; 82962; 93005; A9270; J1885; J2250; J2405; J2704; J2710; J2765; J3010; J3490; J7050; J7120

== ENCOUNTER 2019-01-23 07:25 | Emergency (ER) | payer MEDICAID ==
--- NOTE | 2019-01-23 07:29 | EDM.PDOC ---
ED HPI GENERAL MEDICAL PROBLEM - General Chief Complaint: Allergic Reaction Stated Complaint: ALLERGIC REACTION Time Seen by Provider: 01/23/19 07:29 Source of Information: Reports: Patient, Old Records, RN, RN Notes Reviewed History Limitations: Reports: No Limitations - History of Present Illness INITIAL COMMENTS - FREE TEXT/NARRATIVE: Pt presents to ER by POV with c/o an "allergic reaction". Pt states that early this morning he drank a strawberry smoothie and shortly after had sudden onset of generalized itching, nausea and vomiting. Denies cough, wheezing, rash/hives , swelling of face, lips, tongue, or throat. Admits to slight shortness of breath. Onset: Today, Sudden Duration: Constant Location: Reports: Abdomen, Generalized Quality: Reports: Ache Severity: Moderate Improves with: Reports: None Worsens with: Reports: None Associated Symptoms: Reports: No Other Symptoms - Related Data Allergies Allergy/AdvReac Type Severity Reaction Status Date / Time azithromycin Allergy Cannot Verified 01/23/19 07:30 Remember carisoprodol [From Soma] Allergy Rash Verified 01/23/19 07:30 coconut oil Allergy Rash Verified 01/23/19 07:30 Penicillins Allergy Hives Verified 01/23/19 07:30 pineapple [Pineapple] Allergy Swelling Verified 01/23/19 07:30 venom-honey bee Allergy Anaphylactic Verified 01/23/19 07:30 [bee venom (honey bee)] Shock Home Meds: Home Meds Excedrin 1 tab PO ASDIRECTED PRN 07/10/14 [History] Insulin Regular, Human [Humulin R U-500 Kwikpen] 90 unit SQ QPM 02/15/17 [ History] Insulin Regular, Human [Humulin R] 100 unit IJ QAM 04/09/18 [History] Amitriptyline [Elavil] 25 mg PO DAILY 01/23/19 [History] Fenofibrate Nanocrystallized [Fenofibrate] 145 mg PO DAILY 01/23/19 [History] Past Medical History HEENT History: Reports: None Cardiovascular History: Reports: High Cholesterol Respiratory History: Reports: Sleep Apnea Gastrointestinal History: Reports: GERD, Helicobacter Pylori Genitourinary History: Reports: Renal Calculus, Other (See Below) Other Genitourinary History: 2 left kidneys Musculoskeletal History: Reports: Arthritis, Other (See Below) Other Musculoskeletal History: reconstructive surgery for concave chest when 5 years old Neurological History: Reports: Migraines Psychiatric History: Reports: None Endocrine/Metabolic History: Reports: Diabetes, Type II, Obesity/BMI 30+ Hematologic History: Reports: None Immunologic History: Reports: None Oncologic (Cancer) History: Reports: None Dermatologic History: Reports: None, Psoriasis Other Dermatologic History: scalp and nails - Infectious Disease History Infectious Disease History: Reports: Chicken Pox, Helicobacter Pylori, Measles - Past Surgical History Head Surgeries/Procedures: Reports: None Other HEENT Surgeries/Procedures: Loris Palsy-left Respiratory Surgical History: Reports: Other (See Below) Other Respiratory Surgeries/Procedures: chest deformity surg age 4 Other GI Surgeries/Procedures: saulo tomorrow Male Surgical History: Reports: Circumcision Musculoskeletal Surgical History: Reports: Other (See Below) Other Musculoskeletal Surgeries/Procedures:: right heel spur removal Social & Family History - Family History Family Medical History: Noncontributory Neurological: Reports: MS Psychiatric: Reports: Other (See Below) Other Psychiatric Family History: unsure of familial nerve disorder Endocrine/Metabolic: Reports: Diabetes, type II Oncologic: Reports: Lung - Caffeine Use Caffeine Use: Reports: Coffee - Living Situation & Occupation Living situation: Reports: Single, with Family Occupation: Retired ED ROS ALLERGIC REACTION - Review of Systems Review Of Systems: ROS reveals no pertinent complaints other than HPI. ED EXAM GENERAL NO PERIP PULSE - Physical Exam Exam: See Below Exam Limited By: No Limitations General Appearance: Alert, WD/WN, No Apparent Distress, Anxious Eye Exam: Bilateral Eye: EOMI, Normal Inspection, PERRL Ears: Normal External Exam, Hearing Grossly Normal Nose: Normal Inspection, Normal Mucosa, No Blood Throat/Mouth: Normal Inspection, Normal Lips, Normal Teeth, Normal Gums, Normal Oropharynx, Normal Voice, No Airway Compromise Head: Atraumatic, Normocephalic Neck: Normal Inspection, Supple, Non-Tender, Full Range of Motion Respiratory/Chest: No Respiratory Distress, Lungs Clear, Normal Breath Sounds, No Accessory Muscle Use, Chest Non-Tender Cardiovascular: Normal Peripheral Pulses, Regular Rate, Rhythm, No Edema, No Gallop, No JVD, No Murmur, No Rub GI/Abdominal: Normal Bowel Sounds, Soft, Non-Tender, No Organomegaly, No Distention, No Abnormal Bruit, No Mass Back Exam: Normal Inspection Extremities: Normal Inspection, Normal Range of Motion, Non-Tender, Normal Capillary Refill, No Pedal Edema Neurological: Alert, Oriented, CN II-XII Intact, Normal Cognition, Normal Gait, No Motor/Sensory Deficits Psychiatric: Anxious Skin Exam: Warm, Dry, Intact, Normal Color, No Rash Course - Vital Signs Last Recorded V/S: Last Vital Signs Temp 36.4 C 01/23/19 07:26 Pulse 88 01/23/19 07:26 Resp 15 01/23/19 07:26 BP 159/95 H 01/23/19 07:26 Pulse Ox 99 01/23/19 07:31 - Orders/Labs/Meds Orders: Active Orders 24 hr Category Date Time Status Blood Glucose Check, Bedside [RC] ONETIME Care 01/23/19 07:32 Active Blood Glucose Check, Bedside [RC] ONETIME Care 01/23/19 08:07 Active Peripheral IV Care [RC] . DIRECTED Care 01/23/19 07:31 Active RT Aerosol Therapy [RC] ASDIRECTED Care 01/23/19 07:31 Active Sodium Chloride 0.9% [Saline Flush] Med 01/23/19 07:30 Active 10 ml FLUSH ASDIRECTED PRN Peripheral IV Insertion Adult [OM.PC] Stat Oth 01/23/19 07:30 Ordered Medication Orders Sodium Chloride (Saline Flush) 10 ml FLUSH ASDIRECTED PRN PRN Reason: Keep Vein Open Last Admin: 01/23/19 07:35 Dose: 10 ml Labs: Laboratory Tests 01/23/19 01/23/19 01/23/19 Range/Units 07:40 07:40 07:40 WBC 8.0 (5.0-10.0) 10^3/uL RBC 5.43 (4.6-6.2) 10^6/uL Hgb 16.3 (14.0-18.0) g/dL Hct 48.9 (40.0-54.0) % MCV 90.1 (80-100) fL MCH 30.0 (27.0-34.0) pg MCHC 33.3 (33.0-35.0) g/dL Plt Count 295 (150-450) 10^3/uL Neut % (Auto) 50.1 (42.2-75.2) % Lymph % (Auto) 38.4 (20.5-50.1) % Maverick % (Auto) 7.4 (2-8) % Eos % (Auto) 3.6 H (1.0-3.0) % Baso % (Auto) 0.5 (0.0-1.0) % Sodium 137 (135-145) mmol/L Potassium 3.7 (3.6-5.0) mmol/L Chloride 100 L (101-111) mmol/L Carbon Dioxide 24.0 (21.0-31.0) mmol/L Anion Gap 16.7 BUN 15 (7-18) mg/dL Creatinine 0.8 (0.6-1.3) mg/dL Est Cr Clr Drug Dosing 125.20 mL/min Estimated GFR (MDRD) > 60 BUN/Creatinine Ratio 18.75 Glucose 340 H (74-105) mg/dL POC Glucose (70-105) mg/dl Calcium 9.0 (8.4-10.2) mg/dl Total Bilirubin 0.7 (0.2-1.0) mg/dL AST 25 (10-42) IU/L ALT 27 (10-60) IU/L Alkaline Phosphatase 109 (42-121) IU/L C-Reactive Protein 1.5 H (0.0-1.3) mg/dL Total Protein 7.7 (6.7-8.2) g/dl Albumin 3.9 (3.2-5.5) g/dl Globulin 3.8 Albumin/Globulin Ratio 1.03 Ketones 01/23/19 01/23/19 Range/Units 07:40 07:51 WBC (5.0-10.0) 10^3/uL RBC (4.6-6.2) 10^6/uL Hgb (14.0-18.0) g/dL Hct (40.0-54.0) % MCV (80-100) fL MCH (27.0-34.0) pg MCHC (33.0-35.0) g/dL Plt Count (150-450) 10^3/uL Neut % (Auto) (42.2-75.2) % Lymph % (Auto) (20.5-50.1) % Maverick % (Auto) (2-8) % Eos % (Auto) (1.0-3.0) % Baso % (Auto) (0.0-1.0) % Sodium (135-145) mmol/L Potassium (3.6-5.0) mmol/L Chloride (101-111) mmol/L Carbon Dioxide (21.0-31.0) mmol/L Anion Gap BUN (7-18) mg/dL Creatinine (0.6-1.3) mg/dL Est Cr Clr Drug Dosing mL/min Estimated GFR (MDRD) BUN/Creatinine Ratio Glucose (74-105) mg/dL POC Glucose 305 H (70-105) mg/dl Calcium (8.4-10.2) mg/dl Total Bilirubin (0.2-1.0) mg/dL AST (10-42) IU/L ALT (10-60) IU/L Alkaline Phosphatase (42-121) IU/L C-Reactive Protein (0.0-1.3) mg/dL Total Protein (6.7-8.2) g/dl Albumin (3.2-5.5) g/dl Globulin Albumin/Globulin Ratio Ketones Negative Meds: Medications Generic Name Dose Route Start Last Admin Trade Name Freq PRN Reason Stop Dose Admin Sodium Chloride 10 ml 01/23/19 07:30 01/23/19 07:35 Saline Flush FLUSH 10 ml ASDIRECTED PRN Administration Keep Vein Open Discontinued Medications Generic Name Dose Route Start Last Admin Trade Name Freq PRN Reason Stop Dose Admin Albuterol 2.5 mg 01/23/19 07:30 01/23/19 07:41 Proventil Neb Soln NEB 01/23/19 07:31 2.5 mg ONETIME ONE Administration Diphenhydramine HCl 50 mg 01/23/19 07:30 01/23/19 07:43 Benadryl IVPUSH 01/23/19 07:31 50 mg ONETIME ONE Administration Sodium Chloride 1,000 mls @ 999 mls/hr 01/23/19 07:30 01/23/19 07:38 Normal Saline IV 01/23/19 08:30 999 mls/hr .BOLUS ONE Administration Insulin Human Regular 10 unit 01/23/19 08:06 01/23/19 08:17 Humulin R IV 01/23/19 08:07 10 units ONETIME ONE Administration Methylprednisolone Sodium Succinate 125 mg 01/23/19 07:30 01/23/19 07:52 Solu-Medrol IVPUSH 01/23/19 07:31 125 mg ONETIME ONE Administration Ondansetron HCl 4 mg 01/23/19 07:30 01/23/19 07:42 Zofran IV 01/23/19 07:31 4 mg ONETIME ONE Administration - Re-Assessments/Exams Free Text/Narrative Re-Assessment/Exam: 01/23/19 08:39 Pt feels improved. No further nausea or vomiting, and itching has resolved. Plan to d/c pt home with instructions to return to ER if symptoms return or worsen, and to monitor his blood sugar closely for the next 48 hours. Departure - Departure Time of Disposition: 08:40 Disposition: Home, Self-Care 01 Condition: Good Clinical Impression: Allergic reaction to food Qualifiers: Encounter type: initial encounter Qualified Code(s): T78.1XXA - Other adverse food reactions, not elsewhere classified, initial encounter Nausea & vomiting Qualifiers: Vomiting type: unspecified Vomiting Intractability: non-intractable Qualified Code(s): R11.2 - Nausea with vomiting, unspecified Hyperglycemia due to type 2 diabetes mellitus Qualifiers: Diabetes mellitus intermission coordinator insulin use: with intermission coordinator use Qualified Code(s): E11.65 - Type 2 diabetes mellitus with hyperglycemia; Z79.4 - manager intermediate (current ) use of insulin - Discharge Information *PRESCRIPTION DRUG MONITORING PROGRAM REVIEWED*: No *COPY OF PRESCRIPTION DRUG MONITORING REPORT IN PATIENT RISHI: No Instructions: Food Allergy, Nausea and Vomiting, Adult, [id number] Forms: ED Department Discharge Additional Instructions: Rx: Zofran 4mg Avoid the food or drink and it's ingredients in the future. Monitor your blood sugar closely for the next 48 hours. Follow up in clinic next week for recheck if needed. Return to ER if worse at any time. - My Orders Last 24 Hours: My Active Orders 01/23/19 07:30 Sodium Chloride 0.9% [Saline Flush] 10 ml FLUSH ASDIRECTED PRN Peripheral IV Insertion Adult [OM.PC] Stat 01/23/19 07:31 Peripheral IV Care [RC] . DIRECTED RT Aerosol Therapy [RC] ASDIRECTED 01/23/19 07:32 Blood Glucose Check, Bedside [RC] ONETIME 01/23/19 08:07 Blood Glucose Check, Bedside [RC] ONETIME - Assessment/Plan Last 24 Hours: My Active Orders 01/23/19 07:30 Sodium Chloride 0.9% [Saline Flush] 10 ml FLUSH ASDIRECTED PRN Peripheral IV Insertion Adult [OM.PC] Stat 01/23/19 07:31 Peripheral IV Care [RC] . DIRECTED RT Aerosol Therapy [RC] ASDIRECTED 01/23/19 07:32 Blood Glucose Check, Bedside [RC] ONETIME 01/23/19 08:07 Blood Glucose Check, Bedside [RC] ONETIME
[2019-01-23] MEDS ORDERED: diphenhydrAMINE 50 MG/ML SDV IVPUSH ONE (07:30)
[2019-01-23] MEDS ORDERED: Ondansetron 4 MG/2 ML SDV IV ONE (07:30)
[2019-01-23] MEDS ORDERED: methylPREDNISolone Sodium Succinate 125 MG/2 ML SDV IVPUSH ONE (07:30)
[2019-01-23] MEDS ORDERED: Sodium Chloride 0.9% 1,000 ML IV ONE (07:30)
[2019-01-23] MEDS ORDERED: Albuterol 0.083% 2.5 MG/3 ML Neb Soln NEB ONE (07:30)
[2019-01-23] MEDS ORDERED: Sodium Chloride 0.9% 10 ML Syringe FLUSH PRN (07:30)
[2019-01-23 08:05] VITALS: BP 159/95
[2019-01-23 08:06] LABS: ANION GAP 16.7; CHLORIDE,CL 100 mmol/L (101-111); SODIUM,NA 137 mmol/L (135-145)
[2019-01-23] MEDS ORDERED: Insulin Regular, Human 100 Units/ML 3 ML Vial IV ONE (08:06)
== END 2019-01-23 09:15 | disposition home or self-care (01) ==
LOC: DL.ED 07:25
DX: T78.1XXA Other adverse food reactions, not elsewhere classified, initial encounter (principal); R11.2 Nausea with vomiting, unspecified; K21.9 Gastro-esophageal reflux disease without esophagitis; E78.00 Pure hypercholesterolemia, unspecified; E11.65 Type 2 diabetes mellitus with hyperglycemia; Z88.0 Allergy status to penicillin; Z88.1 Allergy status to other antibiotic agents
CPT/HCPCS: 36415; 80053; 82009; 82962; 85025; 86140; 94640; 96365; 96375; 99283; J1200; J1815; J2405; J2930; J7030; J7613-GY